=== PATIENT | female | born 1985 | race Two or more races ===

== ENCOUNTER 2023-03-28 20:13 | Emergency (ER) | payer OTHER ==
[~2023-03-28] VITALS: Ht 172.7 cm; Wt 90.9 kg
[2023-03-28 21:31] LABS: Urine Bacteria NONE SEEN /hpf (None Seen); Urine Blood 3+ /uL (Negative); Urine Clarity HAZY (Clear); Urine Color Yellow (Yellow); Urine Protein, UAD TRACE (Negative); Urine Specific Gravity 1.027 (1.001-1.035); Urine Urobilinogen Normal (Negative); Urine WBC 30 /hpf (0 - 5); Urine pH 5.5 (5.0-8.0)
[2023-03-28 21:37] LABS: Basophils # (auto) 0 10 ^3/uL (0-0.2); Basophils % (auto) 0.6 % (0.0-2.0); Eosinophils # (auto) 0.3 10 ^3/uL (0-0.8); Eosinophils % (auto) 4.5 % (0.0-7.0); Hematocrit 39.5 % (36.0-46.0); Hemoglobin 13.3 g/dL (12.2-16.2); Lymphocytes # (auto) 2.3 10 ^3/uL (0.4-5.4); Lymphocytes % (auto) 37.1 % (10.0-50.0); Mean Corpuscular Hemoglobin 30.4 pg (28.0-32.0); Mean Corpuscular Hgb Conc. 33.7 g/dL (32.0-36.0); Mean Corpuscular Volume 90.3 fL (80.0-100.0); Monocytes # (auto) 0.4 10 ^3/uL (0-1.3); Monocytes % (auto) 6.6 % (0.0-12.0); Neutrophils # (auto) 3.2 10 ^3/uL (1.6-8.6); Neutrophils % (auto) 51.2 % (37.0-80.0); Red Blood Cells 4.37 10^6/uL (4.0-5.20); White Blood Cell 6.3 10^3/uL (4.4-10.8)
[2023-03-28] MEDS ORDERED: NITR-87 PO ×2 (21:40)
[2023-03-28 22:29] LABS: Alanine Aminotransferase 66 U/L (7-40); Albumin 4.5 g/dL (3.2-4.8); Alkaline Phosphatase 70 U/L (46-116); Anion Gap 10.2 (5-15); Aspartate Aminotransferase 30 U/L (13-40); Bilirubin, Total 0.3 mg/dL (0.2-1.0); Blood Urea Nitrogen 10 mg/dL (9-23); Calcium 9.1 mg/dL (8.5-10.1); Carbon Dioxide 22.8 mmol/L (20-30); Chloride 108 mmol/L (98-107); Glucose 92 mg/dL (74-106); Sodium 141 mmol/L (136-145); Total Protein 7.1 g/dL (5.7-8.2)
[2023-03-29 00:23] VITALS: BP 134/54; PULSE 60; RESP 18; TEMP 98.3; O2SAT 99
[2023-03-29] MEDS ORDERED: CEPH500C PO (00:33)
== END 2023-03-29 00:30 | disposition home or self-care (01) ==
LOC: ER 20:13
DX: O20.0 Threatened abortion (principal); O23.41 Unspecified infection of urinary tract in pregnancy, first trimester; N39.0 Urinary tract infection, site not specified; Z3A.01 Less than 8 weeks gestation of pregnancy
CPT/HCPCS: 36415; 76801; 76817; 80053; 81001; 84702; 85025; 86850; 86900; 86901

== ENCOUNTER 2024-05-10 14:56 | Emergency (ER) | payer OTHER ==
[~2024-05-10] VITALS: Ht 172.7 cm; Wt 102.6 kg
[~2024-05-10 14:56] MED LIST: CEPH500C PO
[2024-05-10 18:06] VITALS: BP 119/60; PULSE 71; RESP 18; TEMP 98.1; O2SAT 97
== END 2024-05-10 18:07 | disposition home or self-care (01) ==
LOC: ER 14:59
DX: S00.83XA Contusion of other part of head, initial encounter (principal); Z79.899 Other long term (current) drug therapy; W21.07XA Struck by softball, initial encounter; Y93.89 Activity, other specified; Y92.89 Other specified places as the place of occurrence of the external cause; Y99.8 Other external cause status
CPT/HCPCS: 70140